=== PATIENT | male | born 1985 | race Hispanic/Latino ===

== ENCOUNTER 2018-01-07 16:36 | Emergency (ER) | payer SELFPAY ==
[2018-01-07] MEDS ORDERED: cefTRIAXone\\ROCEPHIN 250 MG VIAL ONE (17:07)
[2018-01-07] MEDS ORDERED: Lidocaine 1% PF 5 ML VIAL ONE (17:07)
[2018-01-07 17:26] LABS: Bilirubin Negative (Negative); Blood, Urine Negative (Negative); Clarity CLEAR (Clear); Glucose, Urine (Dipstick) Negative (Negative); Leukocyte Negative (Negative); Nitrite Negative (Negative); Protein, Urine (Dipstick) Negative (Neg-Trace); Specific Gravity, Urine 1.026 (1.002-1.036)
--- NOTE | 2018-01-07 20:33 | ULT ---
TESTICULAR ULTRASOUND: 01/07/18 HISTORY: Left testicular pain and swelling x7 days. COMPARISON: None. TECHNIQUE: Mays scale, color flow, doppler imaging with spectral waveform analysis performed in the left and rig ht testicle. FINDINGS: RIGHT HEMISCROTUM: Right testicle has a homogeneous echotexture. No intratesticular mass. Right testicle measures 4.0 x 3.3 x 2.2 cm. Right epididymis has a normal echotexture measuring 1.4 x 0.7 cm. No evidence of a righ t sided hydrocele. LEFT HEMISCROTUM: Left testicle has a homogeneous echotexture. No intratesticular mass. Left testicle measures 3.1 x 4. 2 x 2.4 cm. The body and tail of the left epididymis are prominent. Left epididymis measuring 1.2 x 1.1 cm. There is a small left sided hydrocele. TESTICULAR DOPPLER: There is vascular flow to both testicles. There is increased vascular flow to the left epididymis. IMPRESSION: Left epididymitis. POS: [facility]
[2018-01-08 23:51] LABS: Chlamydia by PCR Not Detected (NotDetected); GC by PCR Not Detected (NotDetected)
== END 2018-01-07 18:37 | disposition home or self-care (01) ==
LOC: ERS 16:36
DX: N45.3 Epididymo-orchitis (principal)
CPT/HCPCS: 76870; 81003; 87086; 87491; 87591; 93976; 96372; J0696; J2001

== ENCOUNTER 2018-05-18 01:14 | Emergency (ER) | payer OTHER, SELFPAY ==
[2018-05-18 02:02] LABS: #Basophils 0.1 thou/uL (0.0-0.2); #Eosinphils 0.1 thou/uL (0.0-0.7); #Lymphocytes 2.3 thou/uL (1.20-3.40); #Monocytes 0.5 thou/uL (0.11-0.59); #Neutrophils 5.4 thou/uL (1.40-6.50); %Basophils 0.8 % (0.0-1.0); %Eosinophils 0.9 % (0.0-10.0); %Lymphocytes 27.8 % (21.0-51.0); %Monocytes 5.5 % (0.0-10.0); %Neutrophils 65.1 % (42.0-75.0); Hemoglobin 15.8 g/dL (14.0-18.0); Mean Corpuscular HGB CONC 34.6 g/dL (32.0-36.0); Mean Corpuscular Hemoglobin 29.9 pg (27.0-31.0); Mean Corpuscular Volume 86.4 fL (78.0-98.0); Mean Platelet Volume 8.5 fL (7.4-10.4); Platelet Count 229 thou/uL (130-400); RBC Distribution Width 12.1 % (11.5-14.5); Red Blood Cell (RBC) Count 5.29 mill/uL (4.70-6.10); White Blood Cell (WBC) Count 8.4 thou/uL (4.8-10.8)
[2018-05-18 02:02] LABS: Bilirubin Negative (Negative); Blood, Urine Negative (Negative); Clarity CLEAR (Clear); Glucose, Urine (Dipstick) Negative (Negative); Leukocyte Negative (Negative); Nitrite Negative (Negative); Protein, Urine (Dipstick) Negative (Neg-Trace); Specific Gravity, Urine 1.021 (1.002-1.036); Urobilinogen 0.2 mg/dL (0.2-1.0); pH, Urine 5.5 (5.0-9.0)
[2018-05-18 02:20] LABS: ALT (SGPT) 115 U/L (8-55); AST (SGOT) 49 U/L (5-34); Albumin 4.7 g/dL (3.5-5.0); Alkaline Phosphatase 89 U/L (40-150); Anion Gap 14 mmol/L (10-20); BUN (Urea Nitrogen) 17 mg/dL (8.9-20.6); Bilirubin, Total 0.6 mg/dL (0.2-1.2); Calc. Creatinine Clearance 0 mL/min (70-130); Calcium 10.1 mg/dL (7.8-10.44); Carbon Dioxide 25 mmol/L (22-29); Chloride 105 mmol/L (98-107); Estimated GFR-MDRD 59; Globulin 2.9 g/dL (2.4-3.5); Glucose 101 mg/dL (70-105); Protein, Total 7.6 g/dL (6.0-8.3); Sodium 140 mmol/L (136-145)
[2018-05-18] MEDS ORDERED: Ketorolac Tromethamine 30 MG/ML VIAL ONE ×2 (02:24→03:22)
[2018-05-18] MEDS ORDERED: cefTRIAXone\\ROCEPHIN 250 MG VIAL ONE (03:22)
[2018-05-18] MEDS ORDERED: Lidocaine 1% PF 5 ML VIAL ONE (03:23)
--- NOTE | 2018-05-18 07:59 | ULT ---
PRELIMINARY REPORT/[facility]/EMERGENCY AFTER HOURS PROCEDURE: EXAM: US Scrotum EXAM DATE/TIME: 05/18/2018 2:05 AM CLINICAL HISTORY: 32 years old, male; Pain and signs and symptoms; Other: Decreased urination; Other: Left teste pain TECHNIQUE: Imaging protocol: Real-time ultrasound of the scrotum and contents with color Doppler and image docum entation. COMPARISON: No relevant prior studies available. FINDINGS: The testicles are within normal limits and relatively symmetrical in size. Right: No visible intratesticular mass. Duplex Doppler evaluation, with color flow and spectral waveform analysis, demonstrates intratesticul ar arterial and venous blood flow. The right epididymis is normal in size and appearance. There is a small amount of right scrotal fluid. Left: No visible intratesticular mass. Duplex Doppler evaluation, with color flow and spectral waveform analysis, demonstrates intratesticul ar arterial and venous blood flow. The left epididymis appears mildly to moderately enlarged and shows relatively increased blood flow. The appearance is compatible with left epididymitis, please correlate clinically. There is a small amount of left scrotal fluid. IMPRESSION: 1. Findings compatible with left epididymitis, see above details. 2. No evidence for torsion by Doppler ultrasound. 3. Small amount of scrotal fluid bilaterally. 4. Other details discussed above. Thank you for allowing us to participate in the care of your patient. Dictated and Authenticated by: Dae Galarza MD 05/18/2018 2:32 AM Central Time ([place] & [place]) FINAL REPORT ULTRASOUND TESTICULAR WITH DOPPLER: Date: 05/18/18 HISTORY: Left testicular pain. COMPARISON: Testicular ultrasound from 2018. FINDINGS/IMPRESSION: Findings and impression are concordant with the preliminary report by [facility]. POS: [facility]
[2018-05-19 17:06] LABS: Chlam.trachomatis by PCR,Urine Not Detected (NotDetected)
== END 2018-05-18 04:20 | disposition home or self-care (01) ==
LOC: ERS 01:14
DX: N45.1 Epididymitis (principal); R33.9 Retention of urine, unspecified
CPT/HCPCS: 36415; 76870; 80053; 81003; 85025; 87491; 87591; 93976; 96361; 96372; 96374; J0696; J1885; J2001